=== PATIENT | male | born 1995 | race African-American/Black ===

== ENCOUNTER 2024-08-18 05:05 | Emergency (ER) | payer BC ==
[~2024-08-18] VITALS: Ht 175.3 cm; Wt 81.7 kg
== END 2024-08-18 06:28 | disposition left against medical advice (07) ==
LOC: ER 05:05
DX: R09.A2 Foreign body sensation, throat (principal); Z53.21 Procedure and treatment not carried out due to patient leaving prior to being seen by health care provider